=== PATIENT | male | born 1965 ===

== ENCOUNTER 2020-02-16 01:08 | Outpatient (CLI) | payer OTHER, SELFPAY ==
[2020-02-16 17:41] LABS: SARS-CoV-2 RNA PCR Negative
== END 2020-02-16 01:09 | disposition home or self-care (01) ==
LOC: ANHCOVIDDT 01:08
PROVIDERS: Visit Provider Internal Medicine Critical Care Medicine
DX: Z01.812 Encounter for preprocedural laboratory examination (principal); Z20.828 Contact with and (suspected) exposure to other viral communicable diseases
CPT/HCPCS: 87635; C9803; U0003

== ENCOUNTER 2020-02-18 07:17 | Outpatient (CLI) | payer OTHER, SELFPAY ==
--- NOTE | 2020-03-16 14:05 | WPDSLEEPSTUD ---
Sleep Study Date of Study: 02/18/20 Ordering Provider: Hiram Zeng MD Interpreting Physician: Lulú Kruse MD Sleep Study Type: Split Polysomnogram Height: 1.78 m Weight: 90.718 kg Body Mass Index: 28.7 [place]: 3 Reason for Sleep Study loud snoring, witnessed apneas Sleep History Kirill Walters is a 54 yo man who reports snoring very loudly in making proofing noises while sleeping. His notices that he stops breathing at night. He rarely awakens at night with heartburn belching or coughing. He does not awaken from sleep feeling short of breath. He rarely has trouble sleep with a cold. He does not wake up gasping for breath at night. He patient has breathing problems at night observed by others. He does not sweat at night and only rarely notices his heart pounding or beating irregularly at night. He never falls asleep during the day, never involuntarily, never while driving and does not have loss of muscle tone with strong emotion. He does not have daytime difficulties due to excessive sleepiness, works as a donor relations manager. He does not feel paralyzed on waking or falling asleep. He rarely has vivid dreamlike scenes upon awakening or falling asleep. He is never afraid to go to sleep. He rarely has nightmares. He frequently remembers his dreams. He rarely has racing thoughts. He rarely feels sad depressed and rarely has anxiety. He rarely has muscular tension. He does not notice parts of his body jerking. Does not kick at night, does not have crawling and aching feelings in his legs, does not have leg pain at night and does not have morning jaw pain. He occasionally grind his teeth during sleep. He rarely is bothered by pain during the day. He never is a awakened by pain at night. He rarely wakes up feeling stiff in the morning with sore achy muscles or pain in the neck and spine. He does have memory problems. Normal bedtime is 10:00 p.m. falling asleep within minutes, waking at least once at night to use the bathroom. While awake he will roll over reposition himself. He wakes in the morning at 5:30 a.m.. He has the same weekend schedule. He estimates 6-7 hours of sleep at night. He does not take naps. A short nap might be refreshing. Most of the time he feels good when he wakes in the morning. Habits: Quit tobacco 3 years ago. Caffeine 1 or 2 per day. One alcoholic beverage a day. 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 Video monitoring was also performed. The study was scored using CMS guidelines. After the baseline portion the patient met criteria for a titration. He used a medium air fit in 20 nasal mask. CPAP was started at 5 cm and gradually titrated to 12 cm of water pressure. EPR of 1 was added. Sleep Architecture Baseline During the baseline portion recording time was 162.5 minutes. Sleep time was 1:30 a.m. 4.1 minutes. Sleep efficiency was 82.5%. Sleep latency was 12.4 minutes. REM latency was 144 minutes. There were 14 awakenings and 16 minutes were spent awake after sleep onset. Sleep architecture showed 17.2% stage 1 sleep 79% stage 2 s
[2020-03-16 15:08] VITALS: BMI 28.7
== END 2020-02-18 07:18 | disposition home or self-care (01) ==
LOC: ANHCSM 07:23
DX: G47.33 Obstructive sleep apnea (adult) (pediatric) (principal)
CPT/HCPCS: 95811